=== PATIENT | male | born 1980 | race Caucasian/White ===

== ENCOUNTER 2017-04-24 00:17 | Emergency (ER) | payer SELFPAY ==
[~2017-04-24] VITALS: Ht 190.5 cm; Wt 118.0 kg
[2017-04-24] MEDS ORDERED: diphenhydrAMINE HCL 50 MG/ML VIAL IM ONE (00:45)
[2017-04-24] MEDS ORDERED: HALOPERIDOL LACTATE 5 MG/ML AMP IM ONE (00:45)
[2017-04-24] MEDS ORDERED: LORazepam 2 MG/ML VIAL IM ONE (00:45)
[2017-04-24] MEDS ORDERED: SODIUM CHLORIDE 0.9% FLUSH 10 ML FLUSH IVF PRN (00:45)
[2017-04-24] MEDS ORDERED: SODIUM CHLOR 0.9% 1000 ML INJ 1,000 ML IV ONE ×2 (00:45→03:15)
[2017-04-24 00:47] VITALS: BP 125/64; PULSE 97; RESP 22; TEMP 98.2; O2SAT 95
--- NOTE | 2017-04-24 01:19 | PD ---
HPI Chief Complaint: Alcohol/Drug Intoxication Time Seen by Provider: 00:27 Travel History International Travel<30 days: No Contact w/Intl Traveler<30days: No Traveled to known affect area: No History of Present Illness HPI The patient is a 36-year-old male who presents to the emergency department via EMS after [place] According to EMS the patient apparently would fall asleep and then awakened suddenly, shout out, and then fall back asleep. Therefore, police were called and when they arrived they called EMS. The patient admitted to using a white powdery substance EMS, however, would not elaborate on how he ingested the white powdery substance. Upon arrival the patient is able to ambulate, he is able to walk around the room, but he will not answer questions. He does fall asleep easily and then suddenly he will wake up and yellow out and then fall back asleep. No further information is obtainable from the patient. [facility] Past Medical History Medical History: Unable to Obtain Tetanus Vaccination: Unknown Past Surgical History Surgical History: Unable to Obtain Social History Alcohol Use: No (UTO) Tobacco Use: No Allergies-Medications (Allergen,Severity, Reaction): Coded Allergies: No Allergy Information Available (Unverified , 04/24/17) Review of Systems ROS Limitations: Clinical Condition, Altered Mental Status Except as stated in HPI: all other systems reviewed are Neg Physical Exam Exam Limitations: Clinical Condition Narrative GENERAL: 36-year-old male who will awaken, yellow, then follows sleep. Able to ambulate around the room. SKIN: Focused skin assessment warm/dry. Multiple tattoos noted. HEAD: Atraumatic. Normocephalic. EYES: Pupils equal and round. 4 mm bilateral. ENT: No nasal bleeding or discharge. Mucous membranes pink and moist. NECK: Trachea midline. No JVD. CARDIOVASCULAR: Regular rate and rhythm. No murmur appreciated. RESPIRATORY: No accessory muscle use. Clear to auscultation. Breath sounds equal bilaterally. GASTROINTESTINAL: Abdomen soft, non-tender, nondistended. Hepatic and splenic margins not palpable. MUSCULOSKELETAL: No obvious deformities. No clubbing. No cyanosis. No edema. NEUROLOGICAL: Awake, then falls asleep easily. Will wake up and yell out. Motor is grossly normal, he is able to get up and ambulate. Unable to evaluate the speech as he will not answer my questions. PSYCHIATRIC: Odd affect. Data Data Last Documented VS Vital Signs Date Time Temp Pulse Resp B/P (MAP) Pulse Ox O2 Delivery O2 Flow Rate FiO2 04/24/17 00:47 98.2 97 22 125/64 (84) 95 Orders Orders Electrocardiogram (04/24/17 00:45) Complete Blood Count With Diff (04/24/17 00:45) Comprehensive Metabolic Panel (04/24/17 00:45) Urinalysis - C+S If Indicated (04/24/17 00:45) Iv Access Insert/Monitor (04/24/17 00:45) Ecg Monitoring (04/24/17 00:45) Oximetry (04/24/17 00:45) Sodium Chloride 0.9% Flush (Ns Flush) (04/24/17 00:45) Sodium Chlor 0.9% 1000 Ml Inj (Ns 1000 M (04/24/17 00:45) Drug Screen, Random Urine (04/24/17 00:45) Alcohol (Ethanol) (04/24/17 00:45) Creatine Kinase (Cpk) (04/24/17 00:45) Cath For Specimen (04/24/17 00:45) Lorazepam Inj (Ativan Inj) (04/24/17 00:45) Haloperidol Inj (Haldol Inj) (04/24/17 00:45) Diphenhydramine Inj (Benadryl Inj) (04/24/17 00:45) Lorazepam Inj (Ativan Inj) (04/24/17 01:45) CKMB (04/24/17 01:40) CKMB% (04/24/17 01:40) Sodium Chlor 0.9% 1000 Ml Inj (Ns 1000 M (04/24/17 03:15) Labs Laboratory Tests Test 04/24/17 01:05 04/24/17 01:40 Urine Color LIGHT-YELLOW Urine Turbidity CLEAR Urine pH 5.0 Urine Specific [place] 1.013 Urine Protein NEG mg/dL Urine Glucose (UA) NEG mg/dL Urine Ketones NEG mg/dL Urine Occult Blood NEG Urine Nitrite NEG Urine Bilirubin NEG Urine Urobilinogen LESS THAN 2.0 MG/DL Urine Leukocyte Esterase NEG Urine WBC 1 /hpf Urine Squamous Epithelial Cells <1 /hpf Urine Mucus FEW /lpf Microscopic Urinalysis Comment CULT NOT INDICATED Urine Opiates Screen NEG Urine Barbiturates Screen NEG Urine Amphetamines Screen POS Urine Benzodiazepines Screen NEG Urine Cocaine Screen POS Urine Cannabinoids Screen NEG White Blood Count 7.4 TH/MM3 Red Blood Count 5.01 MIL/MM3 Hemoglobin 14.9 GM/DL Hematocrit 44.2 % Mean Corpuscular Volume 88.3 FL Mean Corpuscular Hemoglobin 29.7 PG Mean Corpuscular Hemoglobin Concent 33.7 % Red Cell Distribution Width 12.9 % Platelet Count 221 TH/MM3 Mean Platelet Volume 7.9 FL Neutrophils (%) (Auto) 67.4 % Lymphocytes (%) (Auto) 15.9 % Monocytes (%) (Auto) 14.5 % Eosinophils (%) (Auto) 1.8 % Basophils (%) (Auto) 0.4 % Neutrophils # (Auto) 5.0 TH/MM3 Lymphocytes # (Auto) 1.2 TH/MM3 Monocytes # (Auto) 1.1 TH/MM3 Eosinophils # (Auto) 0.1 TH/MM3 Basophils # (Auto) 0.0 TH/MM3 CBC Comment AUTO DIFF Differential Total Cells Counted 100 Neutrophils % (Manual) 69 % Band Neutrophils % 2 % Lymphocytes % 21 % Monocytes % 4 % Eosinophils % 3 % Neutrophils # (Manual) 5.3 TH/MM3 Metamyelocytes 1 % Differential Comment FINAL DIFF MANUAL Platelet Estimate NORMAL Platelet Morphology Comment NORMAL Red Cell Morphology Comment NORMAL Blood Urea Nitrogen 28 MG/DL Creatinine 1.38 MG/DL Random Glucose 90 MG/DL Total Protein 7.1 GM/DL Albumin 3.5 GM/DL Calcium Level 8.5 MG/DL Alkaline Phosphatase 71 U/L Aspartate Amino Transf (AST/SGOT) 67 U/L Alanine Aminotransferase (ALT/SGPT) 62 U/L Total Bilirubin 0.3 MG/DL Sodium Level 138 MEQ/L Potassium Level 4.0 MEQ/L Chloride Level 105 MEQ/L Carbon Dioxide Level 25.5 MEQ/L Anion Gap 8 MEQ/L Estimat Glomerular Filtration Rate 58 ML/MIN Total Creatine Kinase 1075 U/L Creatine Kinase MB 5.5 NG/ML Creatine Kinase MB % 0.5 % Ethyl Alcohol Level LESS THAN 3 MG/DL MDM Medical Decision Making Medical Screen Exam Complete: Yes Emergency Medical Condition: Yes Medical Record Reviewed: Yes Interpretation(s) EKG reveals normal sinus rhythm with a rate in 91. RSR prime in V1. Laboratory Tests Test 04/24/17 01:05 04/24/17 01:40 Urine Color LIGHT-YELLOW Urine Turbidity CLEAR Urine pH 5.0 Urine Specific [place] 1.013 Urine Protein NEG mg/dL Urine Glucose (UA) NEG mg/dL Urine Ketones NEG mg/dL Urine Occult Blood NEG Urine Nitrite NEG Urine Bilirubin NEG Urine Urobilinogen LESS THAN 2.0 MG/DL Urine Leukocyte Esterase NEG Urine WBC 1 /hpf Urine Squamous Epithelial Cells <1 /hpf Urine Mucus FEW /lpf Microscopic Urinalysis Comment CULT NOT INDICATED Urine Opiates Screen NEG Urine Barbiturates Screen NEG Urine Amphetamines Screen POS Urine Benzodiazepines Screen NEG Urine Cocaine Screen POS Urine Cannabinoids Screen NEG White Blood Count 7.4 TH/MM3 Red Blood Count 5.01 MIL/MM3 Hemoglobin 14.9 GM/DL Hematocrit 44.2 % Mean Corpuscular Volume 88.3 FL Mean Corpuscular Hemoglobin 29.7 PG Mean Corpuscular Hemoglobin Concent 33.7 % Red Cell Distribution Width 12.9 % Platelet Count 221 TH/MM3 Mean Platelet Volume 7.9 FL Neutrophils (%) (Auto) 67.4 % Lymphocytes (%) (Auto) 15.9 % Monocytes (%) (Auto) 14.5 % Eosinophils (%) (Auto) 1.8 % Basophils (%) (Auto) 0.4 % Neutrophils # (Auto) 5.0 TH/MM3 Lymphocytes # (Auto) 1.2 TH/MM3 Monocytes # (Auto) 1.1 TH/MM3 Eosinophils # (Auto) 0.1 TH/MM3 Basophils # (Auto) 0.0 TH/MM3 CBC Comment AUTO DIFF Differential Total Cells Counted 100 Neutrophils % (Manual) 69 % Band Neutrophils % 2 % Lymphocytes % 21 % Monocytes % 4 % Eosinophils % 3 % Neutrophils # (Manual) 5.3 TH/MM3 Metamyelocytes 1 % Differential Comment FINAL DIFF MANUAL Platelet Estimate NORMAL Platelet Morphology Comment NORMAL Red Cell Morphology Comment NORMAL Blood Urea Nitrogen 28 MG/DL Creatinine 1.38 MG/DL Random Glucose 90 MG/DL Total Protein 7.1 GM/DL Albumin 3.5 GM/DL Calcium Level 8.5 MG/DL Alkaline Phosphatase 71 U/L Aspartate Amino Transf (AST/SGOT) 67 U/L Alanine Aminotransferase (ALT/SGPT) 62 U/L Total Bilirubin 0.3 MG/DL Sodium Level 138 MEQ/L Potassium Level 4.0 MEQ/L Chloride Level 105 MEQ/L Carbon Dioxide Level 25.5 MEQ/L Anion Gap 8 MEQ/L Estimat Glomerular Filtration Rate 58 ML/MIN Total Creatine Kinase 1075 U/L Creatine Kinase MB 5.5 NG/ML Creatine Kinase MB % 0.5 % Ethyl Alcohol Level LESS THAN 3 MG/DL Differential Diagnosis Differential diagnosis includes substance ingestion, cocaine toxicity, sympathomimetic ingestion, K2 ingestion, [place] ingestion, closed head injury, psychosis, schizophrenia. Narrative Course The patient was initially administered Ativan 2 mg IM, Haldol 5 mg IM, and Benadryl 25 mg IM as he was getting up and am awaiting around the room, appeared to be a risk to himself and others as he appeared somewhat confused and would not follow verbal commands and was not redirectable. The patient was reevaluated at 4:20 AM, he was now awake and alert and oriented 4. He was ambulate without difficulty. The patient will take a cab to a hotel. He no longer appears to be a threat to himself. He is advised to return if they symptoms worsen or progress. Diagnosis Primary Impression: Ingestion of substance Qualified Codes: T65.94XA - Toxic effect of unspecified substance, undetermined, initial encounter Additional Instructions: Stop using illegal drugs. Follow-up with her primary physician. Return if symptoms worsen or progress. Med/Other Pt SpecificInfo: No Change to Meds Disposition: 01 DISCHARGE HOME Condition: Stable Naresh Mahoney MD Apr 24, 2017 01:19
[2017-04-24 01:25] LABS: BILIRUBIN, URINE NEG (NEG); BLOOD, URINE NEG (NEG); GLUCOSE,URINE NEG (NEG); KETONE, URINE NEG (NEG); MUCUS URINE FEW /lpf (OCC); NITRITE,URINE NEG (NEG); SQUAMOUS EPITHELIAL CELL URINE <1 /hpf (0-5); URINE COLOR LIGHT-YELLOW (YELLW/STRAW); URINE LEUKOCYTE ESTERASE NEG (NEG)
[2017-04-24] MEDS ORDERED: LORazepam 2 MG/ML VIAL IV PUSH ONE (01:45)
[2017-04-24 02:16] LABS: BASOPHIL % 0.4 % (0.0-2.0); EOSINOPHIL # 0.1 TH/MM3 (0-0.4); EOSINOPHIL % 1.8 % (0.0-4.0); HEMATOCRIT 44.2 % (39.0-51.0); HEMOGLOBIN 14.9 GM/DL (13.0-17.0); LYMPH % 15.9 % (9.0-44.0); LYMPHOCYTE # 1.2 TH/MM3 (1.0-4.8); MEAN CELL VOLUME 88.3 FL (80.0-100.0); MEAN CORPUSCULAR HEMOGLOBIN 29.7 PG (27.0-34.0); MEAN CORPUSCULAR HGB CONC 33.7 % (32.0-36.0); MEAN PLATELET VOLUME 7.9 FL (7.0-11.0); MONO % 14.5 % (0.0-8.0); MONOCYTE # 1.1 TH/MM3 (0-0.9); NEUT % 67.4 % (16.0-70.0); PLATELET COUNT 221 TH/MM3 (150-450); RED BLOOD COUNT 5.01 MIL/MM3 (4.50-5.90); RED CELL DISTRIBUTION WIDTH 12.9 % (11.6-17.2); WHITE BLOOD COUNT 7.4 TH/MM3 (4.0-11.0)
[2017-04-24 03:00] LABS: ALBUMIN 3.5 GM/DL (3.4-5.0); ALKALINE PHOSPHATASE 71 U/L (45-117); ALT (GPT) 62 U/L (12-78); AST (GOT) 67 U/L (15-37); BICARBONATE 25.5 MEQ/L (21.0-32.0); BLOOD UREA NITROGEN 28 MG/DL (7-18); CALCIUM 8.5 MG/DL (8.5-10.1); CHLORIDE 105 MEQ/L (98-107); CREATININE 1.38 MG/DL (0.60-1.30); GLOMERULAR FILTRATION RATE 58 ML/MIN (>89); GLUCOSE,RANDOM 90 MG/DL (74-106); SODIUM (NA) 138 MEQ/L (136-145); TOTAL BILIRUBIN ADULT 0.3 MG/DL (0.2-1.0); TOTAL PROTEIN 7.1 GM/DL (6.4-8.2)
[2017-04-24 03:19] LABS: BANDS 2 % (0-6); LYMPHOCYTES 21 % (9-44); METAMYELOCYTES 1 % (0-1); MONOCYTES 4 % (0-8); NEUTROPHIL # MANUAL DIFF 5.3 TH/MM3 (1.8-7.7); POLYS (SEG NEUTROPHILS) 69 % (16-70)
[2017-04-24 04:30] VITALS: BP 132/72; PULSE 84; RESP 16; O2SAT 95
--- NOTE | 2017-04-24 22:49 | EKG ---
Date Performed: 04/24/2017 Time Performed: 01:40:25 PTAGE: 36 years EKG: Sinus rhythm POSSIBLE RIGHT VENTRICULAR CONDUCTION DELAY BORDERLINE ECG NO PREVIOUS TRACING DOCTOR: Ori Sarmiento Interpretating Date/Time 04/24/2017 22:47:48
== END 2017-04-24 04:45 | disposition home or self-care (01) ==
LOC: NEPE 00:17
DX: T65.94XA Toxic effect of unspecified substance, undetermined, initial encounter (principal)
CPT/HCPCS: 80053; 80307; 81001; 82550; 82552; 85007; 85027; 93005; 96372; 96374; 99284; J1200; J1630; J2060; J7030

== ENCOUNTER 2017-04-24 06:14 | Emergency (ER) | payer OTHER ==
[~2017-04-24] VITALS: Ht 193 cm; Wt 125.0 kg
[2017-04-24 06:22] VITALS: BP 121/65; PULSE 85; RESP 16; TEMP 98; O2SAT 97
[2017-04-24] MEDS ORDERED: NALOXONE HCL 0.4 MG/ML AMP ONE (06:40)
--- NOTE | 2017-04-24 06:56 | PD ---
HPI Chief Complaint: Alcohol/Drug Intoxication Time Seen by Provider: 06:47 Travel History International Travel<30 days: No Contact w/Intl Traveler<30days: No Traveled to known affect area: No History of Present Illness HPI 36 year-old male presents to the emergency department by police custody as a [place] [employer] Franco act due to being found on the ground in the bushes asleep by the police. Patient is outside the hospital. Patient had just been seen in the hospital earlier and discharged at 4:45 in the morning after being evaluated for polysubstance ingestion. Patient was identified during his visit previously to methamphetamine and cocaine on board. Patient during his stay had received Haldol Benadryl and Ativan. Patient presently has sonorous respirations. Please reported that patient cannot go to long-term in a stuporous condition. Upon vigorous stimulation patient reports that he has not taken any opiates denies taking any other ingestants although he is informed his drug screen was positive for cocaine and methamphetamine which he denies. [facility] Past Medical History Narrative Medical Denies medical history; denies substance use; nursing notes reviewed Social History Alcohol Use: No (UTO) Tobacco Use: No Allergies-Medications (Allergen,Severity, Reaction): Coded Allergies: No Allergy Information Available (Unverified , 04/24/17) Narrative Medication Denies Review of Systems ROS Limitations: Clinical Condition, Altered Mental Status, Poor Historian Physical Exam Narrative GENERAL: Well-developed well-nourished somnolent male in no acute distress no respiratory distress with intermittent sonorous respirations response to tactile painful and verbal stimuli. SKIN: Warm and dry. HEAD: Atraumatic. Normocephalic. EYES: Pupils equal and round. No scleral icterus. No injection or drainage. ENT: No nasal bleeding or discharge. Mucous membranes pink and moist. NECK: Trachea midline. No JVD. CARDIOVASCULAR: Regular rate and rhythm. RESPIRATORY: No accessory muscle use. Clear to auscultation. Breath sounds equal bilaterally. GASTROINTESTINAL: Abdomen soft, non-tender, nondistended. Hepatic and splenic margins not palpable. MUSCULOSKELETAL: Extremities without clubbing, cyanosis, or edema. No obvious deformities. NEUROLOGICAL: Somnolent. No obvious cranial nerve deficits. Motor grossly within normal limits. Five out of 5 muscle strength in the arms and legs. Normal speech. PSYCHIATRIC: Appropriate mood and affect; insight and judgment normal. Data Data Last Documented VS Vital Signs Date Time Temp Pulse Resp B/P (MAP) Pulse Ox O2 Delivery O2 Flow Rate FiO2 04/24/17 06:22 98.0 85 16 121/65 (83) 97 Orders Orders Naloxone Inj (Narcan Inj) (04/24/17 06:40) Ed Discharge Order (04/24/17 06:56) MDM Medical Decision Making Medical Screen Exam Complete: Yes Emergency Medical Condition: Yes Medical Record Reviewed: Yes Differential Diagnosis Polysubstance ingestion, opiate v benzodiazepine ingestion, alcohol intoxication Narrative Course Patient just seen and evaluated after ED stay this morning and released from the emergency department for 4:45 AM as at that time he was reportedly awake and at for a stating he had money to obtain transport via a taxi to his hotel. Subsequently patient was reportedly found outside the hospital asleep on the ground and shrubs. Patient was brought in by the [place] police as a Alvarez's act for assessment and reporting that they could not take him to long-term in his current condition. Patient here has stable vital signs is somnolent but with stimulation awaken states he knows he is at [facility] in [place] the month is April the years 2016 and the president as Ezra Stovall. Subsequently he will follow back to sleep. However at this point time on review of medical records as he received Ativan prior to arrival to the emergency department with his previous visit as well as 2 mg of Ativan IM during his visit 5 mg of Haldol IM during his visit and 50 mg of Benadryl during his visit the patient is obviously requiring time to sleep off all the above-mentioned medications even though he was identified by urine drug screen to have amphetamines and cocaine in his system. Patient has no focality of injury or trauma. At this time patient is otherwise medically cleared and allowed to sleep off his various medication cocktail. Patient has been up at bedside to urinate At 6:55 AM patient is sitting on the side of the bed walking about the exam room wide-awake GCS 15 and is medically cleared into the custody of the law enforcement officers. Diagnosis Primary Impression: Ingestion of substance Referrals: [facility] call for appointment Patient Instructions: General Instructions Additional Instructions: Follow-up with your primary care provider and recommend follow [facility] for resources on discontinuing substance use Disposition: [address] LAW ENFORCEMNT Condition: Stable (ago) Skye Petit MD Apr 24, 2017 06:56
== END 2017-04-24 07:01 ==
LOC: NEPC 06:14
DX: R41.82 Altered mental status, unspecified (principal); T50.905A Adverse effect of unspecified drugs, medicaments and biological substances, initial encounter
CPT/HCPCS: 99281; J2310